=== PATIENT | male | born 1960 | race Caucasian/White ===

== ENCOUNTER 2020-08-13 09:45 | Outpatient (CLI) | payer OTHER | END 2020-08-13 09:46 | disposition home or self-care (01) | LOC: BICMRI 09:45 | PROVIDERS: ATTEND Orthopaedic Surgery | DX: S46.012A Strain of muscle(s) and tendon(s) of the rotator cuff of left shoulder, initial encounter (principal) | CPT/HCPCS: 70210 ==

== ENCOUNTER 2020-08-23 14:04 | Outpatient (CLI) | payer OTHER ==
[2020-08-23 15:34] LABS: #Eosinphils 0.1 10x3/uL (0.0-0.5); #Monocytes 0.5 10x3/uL (0.0-1.1); #Neutrophils 4.2 10x3/uL (1.5-8.4); %Basophils 0.5 % (0.0-2.0); %Eosinophils 2.1 % (0.0-6.0); %Neutrophils 63.9 % (40.0-75.0); Hemoglobin 14.4 g/dL (13.5-17.5); Mean Corpuscular HGB CONC 33.6 g/dL (32.0-36.0); Mean Corpuscular Volume 95.1 fl (81.2-95.1); Mean Platelet Volume 9.7 fl (7.4-10.4); RBC Distribution Width 13.2 % (11.5-14.5); White Blood Cell (WBC) Count 6.6 10x3/uL (3.5-10.5)
[2020-08-23 15:46] LABS: Platelet Count 250 10x3/uL (150-450)
[2020-08-23 16:06] LABS: Anion Gap 15 mmol/L (10-20); BUN (Urea Nitrogen) 24 mg/dL (8.4-25.7); Calc. Creatinine Clearance 0 mL/min (70-130); Calcium 9.6 mg/dL (7.8-10.44); Carbon Dioxide 25 mmol/L (22-29); Chloride 104 mmol/L (98-107); Glucose 144 mg/dL (70-105); Potassium 3.8 mmol/L (3.5-5.1); Sodium 140 mmol/L (136-145)
[2020-08-24 01:18] LABS: SARS-CoV-2 PCR by NAA Not Detected (NotDetected)
== END 2020-08-23 14:05 | disposition home or self-care (01) ==
LOC: LABBT 14:04
PROVIDERS: ATTEND Orthopaedic Surgery
DX: Z01.818 Encounter for other preprocedural examination (principal); S46.012A Strain of muscle(s) and tendon(s) of the rotator cuff of left shoulder, initial encounter; Z20.822 Contact with and (suspected) exposure to COVID-19
CPT/HCPCS: 80048; 85025; 87635; 93005; 93010; U0003; U0005

== ENCOUNTER 2020-08-30 16:54 | Outpatient (CLI) | payer OTHER ==
[2020-08-31 02:14] LABS: SARS-CoV-2 PCR by NAA Not Detected (NotDetected)
== END 2020-08-30 16:55 | disposition home or self-care (01) ==
LOC: LABBT 16:54
PROVIDERS: ATTEND Family Medicine
DX: Z01.812 Encounter for preprocedural laboratory examination (principal); S46.012A Strain of muscle(s) and tendon(s) of the rotator cuff of left shoulder, initial encounter; Z20.822 Contact with and (suspected) exposure to COVID-19
CPT/HCPCS: 87635; U0003; U0005

== ENCOUNTER 2020-09-02 07:30 | Day surgery (SDC) | payer OTHER ==
[2020-09-02] MEDS ORDERED: Fentanyl 100 MCG/2 ML VIAL ONE (09:01)
[2020-09-02] MEDS ORDERED: Midazolam HCl 2 mg/2 ml Vial ONE (09:01)
[2020-09-02] MEDS ORDERED: Fentanyl 100 MCG/2 ML VIAL IV PRN (09:26)
[2020-09-02] MEDS ORDERED: Ketorolac Tromethamine 30 MG/ML VIAL IVP PRN (09:30)
[2020-09-02] MEDS ORDERED: Ropivacaine 0.2% 550 ML 550 ML NERVE BLCK SCH (09:30)
[2020-09-02] MEDS ORDERED: traMADol HCl 50 MG TAB PO PRN ×2 (09:30)
[2020-09-02] MEDS ORDERED: HYDROcodone/Acetaminophen 5/325 mg Tablet PO PRN ×2 (09:30)
[2020-09-02] MEDS ORDERED: Zolpidem Tartrate 5 MG TAB PO PRN (09:30)
[2020-09-02] MEDS ORDERED: Ondansetron PF 4 MG/2 ML Vial IVP PRN (09:30)
[2020-09-02] MEDS ORDERED: Promethazine HCl 25 MG/ML VIAL IM PRN (09:30)
[2020-09-02] MEDS ORDERED: PHENYLEPHRINE-NS 100 MCG/ML 10 ML SYRINGE ONE (10:05)
[2020-09-02] MEDS ORDERED: Ropivacaine 2% HCl/PF (20 MG/10 ML VIAL) ONE (10:05)
[2020-09-02] MEDS ORDERED: Ondansetron PF 4 MG/2 ML Vial ONE ×2 (10:05→12:06)
[2020-09-02] MEDS ORDERED: PROPOFOL 200 MG/20 ML VIAL ONE (10:05)
[2020-09-02] MEDS ORDERED: Ropivacaine 0.5% HCl/PF (150 MG/30 ML VIAL) ONE (10:05)
[2020-09-02] MEDS ORDERED: Rocuronium Bromide 10 MG/ML (10ML VIAL) ONE (10:05)
[2020-09-02] MEDS ORDERED: ePHEDrine Sulfate 50 MG/10 ML VIAL ONE (10:05)
[2020-09-02] MEDS ORDERED: Dexamethasone 20 MG/5 ML VIAL ONE (10:05)
[2020-09-02] MEDS ORDERED: Glycopyrrolate 0.2 MG/ML 5 ML SYRINGE ONE ×2 (10:05→11:15)
[2020-09-02] MEDS ORDERED: Ketorolac Tromethamine 30 MG/ML VIAL ONE (10:05)
[2020-09-02] MEDS ORDERED: Lidocaine 1% PF 5 ML VIAL ONE (10:05)
== END 2020-09-02 14:05 | disposition home or self-care (01) ==
LOC: SDC 07:30
PROVIDERS: ATTEND Orthopaedic Surgery
PROC: 3E0T3BZ Introduction of Anesthetic Agent into Peripheral Nerves and Plexi, Percutaneous Approach (ICD-10-PCS; principal; 2020-09-02)
PROC: 0RNK4ZZ Release Left Shoulder Joint, Percutaneous Endoscopic Approach (ICD-10-PCS; 2020-09-02)
PROC: 0LQ24ZZ Repair Left Shoulder Tendon, Percutaneous Endoscopic Approach (ICD-10-PCS; 2020-09-02)
DX: S46.012A Strain of muscle(s) and tendon(s) of the rotator cuff of left shoulder, initial encounter (principal); M25.812 Other specified joint disorders, left shoulder; G89.18 Other acute postprocedural pain; Z88.1 Allergy status to other antibiotic agents; Z88.5 Allergy status to narcotic agent
CPT/HCPCS: A4306; C1713; J0690; J1100; J1885; J2250; J2405; J2704; J2795; J3010